=== PATIENT | female | born 1955 | race Caucasian/White ===

== ENCOUNTER 2017-11-04 19:12 | Emergency (ER) | payer OTHER ==
[~2017-11-04] VITALS: Ht 152.4 cm; Wt 63.5 kg
[~2017-11-04 19:12] MED LIST: FOLI-43 PO; GABA-531 PO; HYDR200T35 PO; HYDR25TA PO; IBUP100T53 PO; LOSA50TA20 PO; NAPR-681 PO; OMEP20CA10 PO; QUIN10TA28 PO; TRAM50TA3 PO
[2017-11-04] MEDS ORDERED: PREDNISONE 20MG TABLET PO ONE (21:15)
[2017-11-04] MEDS ORDERED: KETOROLAC 30MG/ML VIAL IV ONE (21:15)
[2017-11-04] MEDS ORDERED: PROCHLORPERAZINE MALEATE 10MG TABLET PO ONE (21:15)
[2017-11-04] MEDS ORDERED: SODIUM CHLORIDE 0.9% 1,000 ML IV ONE (21:15)
[2017-11-04] MEDS ORDERED: DIPHENHYDRAMINE 25MG CAPSULE PO ONE (21:15)
[2017-11-04 23:20] VITALS: BP 155/64
== END 2017-11-04 23:30 | disposition home or self-care (01) ==
LOC: ER 19:12
DX: R51 Headache (principal); M25.50 Pain in unspecified joint; I10 Essential (primary) hypertension; M19.90 Unspecified osteoarthritis, unspecified site; Z90.710 Acquired absence of both cervix and uterus
CPT/HCPCS: 96374; 99284; J1885; J7030; J7512; Z7610; Q0163; Q0164

== ENCOUNTER 2018-01-15 15:12 | Inpatient (IN) | payer OTHER ==
[~2018-01-15] VITALS: Ht 154.9 cm; Wt 67.1 kg
[2018-01-15] MEDS ORDERED: ASPIRIN 81MG TABLET PO ONE (16:30)
[2018-01-15 17:59] LABS: BASOPHILS % 0.2 % (0.0-2.0); EOSINOPHILS % 0.6 % (0.0-5.0); HEMATOCRIT. 36.1 % (36.0-48.0); HEMOGLOBIN. 12.1 g/dL (12.0-16.0); LYMPHOCYTES % 8.3 % (20.0-50.0); MEAN CORPUSCULAR HEMOGLOBIN 29.6 pg (28.0-32.0); MEAN CORPUSCULAR VOLUME 88.5 fL (81.0-99.0); MEAN PLATELET VOLUME 6.5 fl (7.4-10.4); MONOCYTES % 2.6 % (2.0-8.0); NEUTROPHILS % 88.3 % (40.0-76.0); PLATELET 517 x1000/uL (130-400); RED BLOOD CELL COUNT 4.08 mill/uL (4.2-5.4); RED CELL DISTRIBUTION WIDTH 15.8 % (11.6-14.6)
[2018-01-15 18:11] LABS: CHLORIDE 105 mEq/L (98-107)
[2018-01-15] MEDS ORDERED: HYDROCODONE/ACETAMINOPHEN 5/325MG TABLET PO PRN (18:45)
[2018-01-15] MEDS ORDERED: DEXTROSE 50% WATER 50ML SYRINGE IV PRN (18:45)
[2018-01-15] MEDS ORDERED: ACETAMINOPHEN 325MG TABLET PO PRN (18:45)
[2018-01-15] MEDS ORDERED: MORPHINE SULFATE 4 MG/ML CPJ (NOT FOR IM USE) IV ONE (18:45)
[2018-01-15] MEDS ORDERED: ONDANSETRON HCL 4MG/2ML INJ IV PRN (18:45)
[2018-01-15 19:16] LABS: LDL CHOLESTEROL 67 mg/dL (5-100)
[2018-01-15 19:18] LABS: CREATINE KINASE 23 IU/L (26-192); CREATINE KINASE MB FRACTION < 1.0 ng/mL (0.5-3.6); HDL CHOLESTEROL 53 mg/dL (40-59)
[2018-01-15] MEDS ORDERED: REGADENOSON 0.4 MG/5 ML IV NR (20:00)
[2018-01-15 20:07] LABS: CLARITY URINE CLEAR (CLEAR); COLOR URINE YELLOW (YELLOW); KETONES URINE NEGATIVE (NEGATIVE); LEUKOCYTE ESTERASE URINE NEGATIVE (NEGATIVE); NITRITE URINE NEGATIVE (NEGATIVE); OCCULT BLOOD URINE NEGATIVE (NEGATIVE); PH URINE 6.5 (4.5-8.0); PROTEIN URINE NEGATIVE (NEGATIVE); UROBILINOGEN URINE 0.2 E.U./dL (0.2-1.0)
[2018-01-15 20:23] LABS: *AMPHETAMINES SCREEN URINE NEGATIVE (NEGATIVE); *BARBITURATES SCREEN URINE NEGATIVE (NEGATIVE); *BENZODIAZEPINES SCREEN URINE NEGATIVE (NEGATIVE)
[2018-01-15 20:24] LABS: *COCAINE SCREEN URINE NEGATIVE (NEGATIVE); CANNABINOID URINE SCREEN PRESUMTIVE POSITIVE (NEGATIVE); METHADONE URINE SCREEN NEGATIVE (NEGATIVE); OPIATES URINE SCREEN NEGATIVE (NEGATIVE); PHENCYCLIDINE URINE SCREEN NEGATIVE (NEGATIVE)
[2018-01-15 22:15] VITALS: BP 171/82
[2018-01-15] MEDS ORDERED: CLONIDINE 0.1MG TABLET PO PRN (23:30)
[2018-01-15] MEDS ORDERED: ZOLPIDEM TARTRATE 5MG TABLET PO PRN (23:30)
[2018-01-15] MEDS ORDERED: CEFTRIAXONE 1 G PREMIX 50 ML IV SCH (23:45)
[2018-01-15] MEDS: MORPHINE SULFATE 4 MG/ML CPJ (NOT FOR IM USE) IV PRN (23:52)
[2018-01-16] VITALS (7 sets, daily range): BP systolic 126–155; BP diastolic 46–105
[2018-01-16] MEDS: MORPHINE SULFATE 4 MG/ML CPJ (NOT FOR IM USE) IV PRN ×4 (04:12→17:05)
[2018-01-16] MEDS: BLOOD SUGAR DIAGNOSTIC STRIP TEST SCH ×3 (06:37→17:37)
[2018-01-16 06:39] LABS: BASOPHILS % 0.2 % (0.0-2.0); EOSINOPHILS % 1.7 % (0.0-5.0); HEMATOCRIT. 34.1 % (36.0-48.0); HEMOGLOBIN. 11.5 g/dL (12.0-16.0); MEAN CORPUSCULAR HEMOGLOBIN 29.8 pg (28.0-32.0); MEAN CORPUSCULAR VOLUME 88.3 fL (81.0-99.0); MEAN PLATELET VOLUME 6.7 fl (7.4-10.4); MONOCYTES % 3.7 % (2.0-8.0); NEUTROPHILS % 80.4 % (40.0-76.0); PLATELET 504 x1000/uL (130-400); RED BLOOD CELL COUNT 3.86 mill/uL (4.2-5.4); RED CELL DISTRIBUTION WIDTH 15.5 % (11.6-14.6)
[2018-01-16 07:35] LABS: CHLORIDE 106 mEq/L (98-107)
[2018-01-16 07:41] LABS: CREATINE KINASE 22 IU/L (26-192); CREATINE KINASE MB FRACTION < 1.0 ng/mL (0.5-3.6); HDL CHOLESTEROL 49 mg/dL (40-59); LDL CHOLESTEROL 69 mg/dL (5-100)
[2018-01-16] MEDS ORDERED: ASPIRIN 81MG TABLET PO SCH (09:00)
[2018-01-16] MEDS: INSULIN LISPRO 100 UNITS/ML SUBCUT SCH ×2 (12:15→18:12)
== END 2018-01-16 21:15 | disposition home or self-care (01) | DRG 720 ==
LOC: ER 15:12 → 5WST 16:37 → EDBEDREQ 18:42 → ENRESERV 20:25
PROVIDERS: ADMIT Internal Medicine; ATTEND Internal Medicine
DX: A41.89 Other specified sepsis (principal); E44.0 Moderate protein-calorie malnutrition; E11.9 Type 2 diabetes mellitus without complications; F32.9 Major depressive disorder, single episode, unspecified; F41.9 Anxiety disorder, unspecified; I10 Essential (primary) hypertension; I83.90 Asymptomatic varicose veins of unspecified lower extremity; J30.9 Allergic rhinitis, unspecified; K21.9 Gastro-esophageal reflux disease without esophagitis; K59.00 Constipation, unspecified; M06.9 Rheumatoid arthritis, unspecified; M19.90 Unspecified osteoarthritis, unspecified site; N95.1 Menopausal and female climacteric states; R07.89 Other chest pain; G47.9 Sleep disorder, unspecified; H57.89 Other specified disorders of eye and adnexa; Z82.49 Family history of ischemic heart disease and other diseases of the circulatory system; Z90.710 Acquired absence of both cervix and uterus; Z88.8 Allergy status to other drugs, medicaments and biological substances; Z68.28 Body mass index [BMI] 28.0-28.9, adult; Z82.61 Family history of arthritis; Z90.49 Acquired absence of other specified parts of digestive tract; Z79.899 Other long term (current) drug therapy
CPT/HCPCS: 36415; 71045; 78452; 80048; 80061; 80305; 82550; 82553; 82962; 83036; 83880; 84145; 84443; 84484; 93005; 93017; 93306; 93970; 99285; A9500; J0696; J1815; J2270; J7050

== ENCOUNTER 2018-03-17 21:04 | Emergency (ER) | payer OTHER ==
[~2018-03-17] VITALS: Ht 152.4 cm; Wt 68.2 kg
[2018-03-18 00:40] VITALS: BP 142/78
== END 2018-03-18 01:35 | disposition home or self-care (01) ==
LOC: ER 21:04
DX: M54.40 Lumbago with sciatica, unspecified side (principal); M19.90 Unspecified osteoarthritis, unspecified site; I10 Essential (primary) hypertension; E11.9 Type 2 diabetes mellitus without complications; Z79.899 Other long term (current) drug therapy; Z88.8 Allergy status to other drugs, medicaments and biological substances
CPT/HCPCS: 99283

== ENCOUNTER 2018-10-05 19:21 | Emergency (ER) | payer MEDICARE, OTHER ==
[~2018-10-05] VITALS: Ht 154.9 cm; Wt 67.0 kg
[~2018-10-05 19:21] MED LIST changes: -LOSA50TA20 PO; +LOSA50TA41 PO; -OMEP20CA10 PO; +OMEP20CA5 PO
[2018-10-05 19:59] VITALS: BP 166/79
== END 2018-10-05 22:30 | disposition left against medical advice (07) ==
LOC: ER 19:21
DX: Z53.21 Procedure and treatment not carried out due to patient leaving prior to being seen by health care provider (principal)

== ENCOUNTER 2021-09-22 17:18 | Inpatient (IN) | payer MEDICARE, MEDICAID ==
[~2021-09-22] VITALS: Ht 154.9 cm; Wt 57.8 kg
[~2021-09-22 17:18] MED LIST changes: -GABA-531 PO; +GABA-532 PO; +OMEP20CA14 PO; -OMEP20CA5 PO
[2021-09-22] MEDS ORDERED: ACETAMINOPHEN 325MG TABLET PO STA (18:18)
[2021-09-22] MEDS ORDERED: NITROGLYCERIN 0.4MG TABLET SL SL PRN (18:30)
[2021-09-22] MEDS ORDERED: NAPROXEN 375MG TABLET PO ONE (18:45)
[2021-09-22 19:01] LABS: BASOPHILS % 0.6 % (0.0-2.0); EOSINOPHILS % 2.5 % (0.0-5.0); HEMOGLOBIN. 11.3 g/dL (12.0-16.0); LYMPHOCYTES % 28.4 % (20.0-50.0); MEAN CORPUSCULAR HEMOGLOBIN 29.8 pg (28.0-32.0); MEAN CORPUSCULAR VOLUME 89.4 fL (81.0-99.0); MEAN PLATELET VOLUME 5.9 fl (7.4-10.4); MONOCYTES % 5.5 % (2.0-8.0); PLATELET 440 x1000/uL (130-400); RED CELL DISTRIBUTION WIDTH 14.8 % (11.6-14.6)
[2021-09-22 19:12] LABS: CHLORIDE 104 mEq/L (98-107)
[2021-09-22] MEDS ORDERED: ASPIRIN 325MG EC TABLET PO ONE (20:30)
[2021-09-22] MEDS ORDERED: HYDROCODONE/ACETAMINOPHEN 5/325MG TABLET PO ONE (21:00)
[2021-09-22 22:30] VITALS: BP 147/75
[2021-09-22 23:02] VITALS: BP 147/75
[2021-09-22] MEDS ORDERED: DEXTROSE 50% WATER 50ML SYRINGE IV PRN (23:45)
[2021-09-23] VITALS: BP 125/68
[2021-09-23] MEDS ORDERED: DOXA1TAB2 PO (00:07)
[2021-09-23] MEDS ORDERED: IBUP-2029 PO (00:07)
[2021-09-23] MEDS ORDERED: GABA-290 PO (00:07)
[2021-09-23] MEDS ORDERED: DULO60CA64 PO (00:07)
[2021-09-23] MEDS ORDERED: METF-873 PO (00:07)
[2021-09-23] MEDS ORDERED: LISI20TA31 PO (00:07)
[2021-09-23] MEDS ORDERED: ATOR20TA PO (00:07)
[2021-09-23] MEDS ORDERED: IBUPROFEN 600MG TABLET PO PRN (00:30)
[2021-09-23] MEDS: ATORVASTATIN CALCIUM 20MG TABLET PO SCH ×2 (00:53→21:19)
[2021-09-23] MEDS: GABAPENTIN 300MG CAPSULE PO SCH ×2 (00:53→21:19)
[2021-09-23] MEDS: TRAMADOL 50MG TABLET PO SCH ×3 (00:55→17:39)
[2021-09-23 04:00] VITALS: BP 108/57
[2021-09-23 08:00] VITALS: BP 129/71
[2021-09-23] MEDS: INSULIN LISPRO 100 UNITS/ML SUBCUT SCH ×4 (08:04→21:00)
[2021-09-23] MEDS: BLOOD SUGAR DIAGNOSTIC STRIP TEST SCH ×4 (08:04→21:19)
[2021-09-23] MEDS: DULOXETINE HCL 60MG DR CAPSULE PO SCH ×2 (08:18→17:40)
[2021-09-23] MEDS: METFORMIN HCL 500MG TABLET PO SCH ×2 (08:18→17:39)
[2021-09-23] MEDS: LISINOPRIL 20MG TABLET PO SCH (08:18)
[2021-09-23] MEDS: DOXAZOSIN MESYLATE 2MG TABLET PO SCH (08:19)
[2021-09-23] MEDS: FOLIC ACID 1MG TABLET PO SCH (08:19)
[2021-09-23] MEDS: OMEPRAZOLE 20MG CAPSULE EXTENDED RELEASE PO SCH (08:19)
[2021-09-23] MEDS: ENOXAPARIN 40MG/0.4ML SYR SUBCUT SCH (08:20)
[2021-09-23 10:11] LABS: BASOPHILS % 0.5 % (0.0-2.0); EOSINOPHILS % 2.8 % (0.0-5.0); HEMOGLOBIN. 10.9 g/dL (12.0-16.0); LYMPHOCYTES % 26.3 % (20.0-50.0); MEAN CORPUSCULAR HEMOGLOBIN 29.8 pg (28.0-32.0); MEAN CORPUSCULAR VOLUME 89.8 fL (81.0-99.0); MEAN PLATELET VOLUME 6.2 fl (7.4-10.4); NEUTROPHILS % 65.4 % (40.0-76.0); PLATELET 408 x1000/uL (130-400); RED BLOOD CELL COUNT 3.67 mill/uL (4.2-5.4); RED CELL DISTRIBUTION WIDTH 15.1 % (11.6-14.6)
[2021-09-23 11:57] VITALS: BP 133/73
[2021-09-23 12:01] LABS: CHLORIDE 106 mEq/L (98-107)
[2021-09-23 12:08] LABS: HDL CHOLESTEROL 37 mg/dL (40-59); LDL CHOLESTEROL 67 mg/dL (5-100)
[2021-09-23 16:00] VITALS: BP 107/60
[2021-09-24] MEDS: TRAMADOL 50MG TABLET PO SCH (01:10)
[2021-09-24 04:00] VITALS: BP 134/68
[2021-09-24] MEDS ORDERED: HYDROCODONE/ACETAMINOPHEN 5/325MG TABLET PO PRN (06:15)
[2021-09-24] MEDS ORDERED: MORPHINE SULFATE 2 MG/ML CPJ (NOT FOR IM USE) IV NR (06:15)
[2021-09-24] MEDS ORDERED: NALOXONE HCL 0.4MG/ML VIAL IV PRN (06:30)
[2021-09-24] MEDS: BLOOD SUGAR DIAGNOSTIC STRIP TEST SCH (07:31)
[2021-09-24] MEDS: INSULIN LISPRO 100 UNITS/ML SUBCUT SCH (07:41)
[2021-09-24 08:00] VITALS: BP 135/67
[2021-09-24] MEDS: OMEPRAZOLE 20MG CAPSULE EXTENDED RELEASE PO SCH (08:54)
[2021-09-24] MEDS: METFORMIN HCL 500MG TABLET PO SCH (08:55)
[2021-09-24] MEDS: DULOXETINE HCL 60MG DR CAPSULE PO SCH (08:55)
[2021-09-24] MEDS: DOXAZOSIN MESYLATE 2MG TABLET PO SCH (08:55)
[2021-09-24] MEDS: LISINOPRIL 20MG TABLET PO SCH (08:55)
[2021-09-24] MEDS: FOLIC ACID 1MG TABLET PO SCH (08:55)
[2021-09-24] MEDS ORDERED: ASPIRIN 81MG TABLET PO SCH (09:00)
[2021-09-24] MEDS: ENOXAPARIN 40MG/0.4ML SYR SUBCUT SCH (09:01)
[2021-09-24 09:51] VITALS: BP 135/67
[2021-09-24] MEDS ORDERED: HYDR-4001 MT (11:15)
== END 2021-09-24 11:30 | disposition home or self-care (01) | DRG 206 ==
LOC: ER 17:18 → 7WST 20:28 → ENRESERV 21:06
PROVIDERS: ADMIT Internal Medicine; ATTEND Internal Medicine
DX: M94.0 Chondrocostal junction syndrome [Tietze] (principal); E87.1 Hypo-osmolality and hyponatremia; E44.1 Mild protein-calorie malnutrition; Z20.822 Contact with and (suspected) exposure to COVID-19; M06.9 Rheumatoid arthritis, unspecified; I10 Essential (primary) hypertension; E11.9 Type 2 diabetes mellitus without complications; I25.2 Old myocardial infarction; F32.A Depression, unspecified; Z68.24 Body mass index [BMI] 24.0-24.9, adult; I25.10 Atherosclerotic heart disease of native coronary artery without angina pectoris; Z95.1 Presence of aortocoronary bypass graft; Z91.09 Other allergy status, other than to drugs and biological substances
CPT/HCPCS: 36415; 71045; 80048; 80053; 80061; 82962; 83036; 83880; 84484; 85025; 85379; 87426; 93005; 93306; 99285; J1650; J2270

== ENCOUNTER 2021-11-12 13:39 | Inpatient (IN) | payer MEDICARE, OTHER ==
[~2021-11-12] VITALS: Ht 154.9 cm; Wt 61.4 kg
[~2021-11-12 13:39] MED LIST changes: +ATOR20TA PO; +DOXA1TAB2 PO; +DULO60CA64 PO; +GABA-290 PO; +HYDR-4001 MT; +IBUP-2029 PO; +LISI20TA31 PO; +METF-873 PO
[2021-11-12 20:10] LABS: BASOPHILS % 0.5 % (0.0-2.0); EOSINOPHILS % 3.6 % (0.0-5.0); HEMATOCRIT. 36.1 % (36.0-48.0); LYMPHOCYTES % 26.6 % (20.0-50.0); MEAN CORPUSCULAR HEMOGLOBIN 28.8 pg (28.0-32.0); MEAN CORPUSCULAR VOLUME 86.5 fL (81.0-99.0); MEAN PLATELET VOLUME 6.3 fl (7.4-10.4); MONOCYTES % 6.7 % (2.0-8.0); NEUTROPHILS % 62.6 % (40.0-76.0); PLATELET 515 x1000/uL (130-400); RED BLOOD CELL COUNT 4.18 mill/uL (4.2-5.4); RED CELL DISTRIBUTION WIDTH 14.3 % (11.6-14.6)
[2021-11-12 20:19] LABS: CHLORIDE 105 mEq/L (98-107)
[2021-11-12] MEDS ORDERED: METOCLOPRAMIDE HCL 10MG/2ML VIAL IV NR (20:30)
[2021-11-12] MEDS ORDERED: METHYLPREDNISOLONE SOD SUCC 125 MG/2 ML VIAL IV NR (20:30)
[2021-11-12 20:32] LABS: ETHANOL BLOOD < 10 mg/dL
[2021-11-12] MEDS ORDERED: MORPHINE SULFATE 4 MG/ML CPJ (NOT FOR IM USE) IV ONE (21:15)
[2021-11-12 21:45] LABS: *AMPHETAMINES SCREEN URINE NEGATIVE (NEGATIVE); *BARBITURATES SCREEN URINE NEGATIVE (NEGATIVE); *BENZODIAZEPINES SCREEN URINE NEGATIVE (NEGATIVE); *COCAINE SCREEN URINE NEGATIVE (NEGATIVE); CANNABINOID URINE SCREEN NEGATIVE (NEGATIVE); METHADONE URINE SCREEN NEGATIVE (NEGATIVE); OPIATES URINE SCREEN NEGATIVE (NEGATIVE); PHENCYCLIDINE URINE SCREEN NEGATIVE (NEGATIVE)
[2021-11-13] VITALS (7 sets, daily range): BP systolic 141–177; BP diastolic 58–80
[2021-11-13] MEDS ORDERED: HYDROCODONE/ACETAMINOPHEN 5/325MG TABLET PO PRN (06:30)
[2021-11-13] MEDS ORDERED: DEXTROSE 50% WATER 50ML SYRINGE IV PRN (06:30)
[2021-11-13] MEDS ORDERED: NALOXONE HCL 0.4MG/ML VIAL IV PRN (06:30)
[2021-11-13] MEDS: BLOOD SUGAR DIAGNOSTIC STRIP TEST SCH ×3 (07:20→16:38)
[2021-11-13] MEDS: INSULIN LISPRO 100 UNITS/ML SUBCUT SCH ×3 (08:30→17:01)
[2021-11-13 12:46] LABS: CHLORIDE 106 mEq/L (98-107)
[2021-11-13 12:50] LABS: HEMATOCRIT 32.2 % (36.0-48.0); HEMOGLOBIN 10.7 g/dL (12.0-16.0); MEAN CORPUSCULAR HEMOGLOBIN 28.7 pg (28.0-32.0); MEAN CORPUSCULAR VOLUME 86.6 fL (81.0-99.0); PLATELET 480 x1000/uL (130-400); RED BLOOD CELL COUNT 3.72 mill/uL (4.2-5.4); RED CELL DISTRIBUTION WIDTH 14.2 % (11.6-14.6)
[2021-11-13] MEDS ORDERED: TRAMADOL 50MG TABLET PO PRN (13:00)
[2021-11-13] MEDS ORDERED: IBUPROFEN 600MG TABLET PO PRN (13:00)
[2021-11-13] MEDS ORDERED: GABAPENTIN 300MG CAPSULE PO SCH ×2 (13:00→17:00)
[2021-11-13] MEDS ORDERED: CLONIDINE 0.1MG TABLET PO PRN (14:15)
[2021-11-13 14:39] LABS: CLARITY URINE CLEAR (CLEAR); COLOR URINE YELLOW (YELLOW); KETONES URINE 1+ (NEGATIVE); LEUKOCYTE ESTERASE URINE NEGATIVE (NEGATIVE); NITRITE URINE NEGATIVE (NEGATIVE); OCCULT BLOOD URINE NEGATIVE (NEGATIVE); PH URINE 7.5 (4.5-8.0); PROTEIN URINE NEGATIVE (NEGATIVE); SPECIFIC GRAVITY URINE 1.022 (1.005-1.030); UROBILINOGEN URINE 0.2 E.U./dL (0.2-1.0)
[2021-11-13] MEDS ORDERED: HYDROXYCHLOROQUINE SULFATE 200MG TABLET PO SCH (17:00)
[2021-11-14] MEDS ORDERED: OMEPRAZOLE 20MG CAPSULE EXTENDED RELEASE PO SCH (07:20)
[2021-11-14] MEDS ORDERED: HYDROCHLOROTHIAZIDE 25MG TABLET PO SCH (09:00)
[2021-11-14] MEDS ORDERED: LOSARTAN POTASSIUM 50 MG TABLET PO SCH (09:00)
== END 2021-11-13 19:07 | disposition home or self-care (01) | DRG 74 ==
LOC: ER 13:39 → ENRESERV 11-13 02:55 → 6WST 11-13 04:56
PROVIDERS: ADMIT Internal Medicine; ATTEND Internal Medicine
DX: G90.8 Other disorders of autonomic nervous system (principal); M06.9 Rheumatoid arthritis, unspecified; E11.9 Type 2 diabetes mellitus without complications; I10 Essential (primary) hypertension; H53.8 Other visual disturbances; H92.02 Otalgia, left ear; F32.A Depression, unspecified; Z91.09 Other allergy status, other than to drugs and biological substances
CPT/HCPCS: 36415; 71045; 80048; 80053; 80305; 80320; 81003; 82962; 83036; 83880; 84484; 85025; 85027; 85651; 86140; 93005; 99285; J1815; J2270; J2765; J2930; G0480

== ENCOUNTER 2021-11-29 14:28 | Emergency (ER) | payer MEDICARE, OTHER ==
[~2021-11-29] VITALS: Ht 152.4 cm; Wt 55.0 kg
[2021-11-29] MEDS ORDERED: HYDROCODONE/ACETAMINOPHEN 5/325MG TABLET PO ONE (16:15)
[2021-11-29 17:55] VITALS: BP 114/60
== END 2021-11-29 17:40 | disposition home or self-care (01) ==
LOC: ER 14:28
DX: M06.9 Rheumatoid arthritis, unspecified (principal); I10 Essential (primary) hypertension; E11.9 Type 2 diabetes mellitus without complications
CPT/HCPCS: 99283

== ENCOUNTER 2022-04-10 17:59 | Emergency (ER) | payer MEDICARE, OTHER ==
[~2022-04-10] VITALS: Ht 152.4 cm; Wt 59.0 kg
[2022-04-10 18:03] VITALS: BP 191/74
== END 2022-04-10 18:58 | disposition left against medical advice (07) ==
LOC: ER 17:59
DX: Z53.21 Procedure and treatment not carried out due to patient leaving prior to being seen by health care provider (principal)
CPT/HCPCS: 93005

== ENCOUNTER 2022-08-31 16:00 | Emergency (ER) | payer MEDICARE, MEDICAID ==
[~2022-08-31] VITALS: Ht 152.4 cm; Wt 72.7 kg
[2022-08-31] MEDS ORDERED: KETOROLAC 60MG/2ML VIAL IM ONE (18:30)
[2022-08-31 18:52] VITALS: BP 172/88
[2022-09-03] MEDS ORDERED: GABA-532 PO (13:23)
== END 2022-08-31 18:50 | disposition home or self-care (01) ==
LOC: ER 16:00
DX: I10 Essential (primary) hypertension (principal); E11.9 Type 2 diabetes mellitus without complications; M06.9 Rheumatoid arthritis, unspecified; Z68.31 Body mass index [BMI] 31.0-31.9, adult; Z79.899 Other long term (current) drug therapy; Z88.6 Allergy status to analgesic agent; Z88.8 Allergy status to other drugs, medicaments and biological substances
CPT/HCPCS: 96372; 99283; J1885

== ENCOUNTER 2023-02-07 13:54 | Emergency (ER) | payer MEDICARE, MEDICAID ==
[~2023-02-07] VITALS: Ht 152.4 cm; Wt 73.0 kg
[~2023-02-07 13:54] MED LIST changes: -GABA-290 PO; -HYDR200T35 PO; -IBUP100T53 PO; -NAPR-681 PO; -QUIN10TA28 PO
[2023-02-07 14:15] VITALS: O2SAT 96
[2023-02-07 14:45] LABS: BASOPHILS % 0.3 % (0.0-2.0); EOSINOPHILS % 0.1 % (0.0-5.0); HEMATOCRIT. 30.2 % (36.0-48.0); HEMOGLOBIN. 9.9 g/dL (12.0-16.0); LYMPHOCYTES % 9.8 % (20.0-50.0); MEAN CORPUSCULAR HEMOGLOBIN 27.5 pg (28.0-32.0); MEAN CORPUSCULAR HGB CONC 32.8 g/dL (31.0-37.0); MEAN CORPUSCULAR VOLUME 83.9 fL (81.0-99.0); MEAN PLATELET VOLUME 6.4 fl (7.4-10.4); MONOCYTES % 1.2 % (2.0-8.0); NEUTROPHILS % 88.6 % (40.0-76.0); PLATELET 467 x1000/uL (130-400); RED BLOOD CELL COUNT 3.61 mill/uL (4.2-5.4); RED CELL DISTRIBUTION WIDTH 18.1 % (11.6-14.6); WHITE BLOOD COUNT 6.4 x1000/uL (4.5-11.0)
[2023-02-07 14:56] LABS: CHLORIDE 108 mEq/L (98-107); INDEX HEMOLYSI 1 (1-3); INDEX ICTERIC 1 (1-4); INDEX LIPEMIC 1 (1-3); POTASSIUM 4.2 mEq/L (3.5-5.1); SODIUM 137 mEq/L (136-145)
[2023-02-07 15:04] LABS: ALANINE AMINOTRANSFERASE 20 IU/L (13-61); ALBUMIN 3.5 g/dL (3.4-5.0); ASPARTATE AMINOTRANSFERASE 17 IU/L (15-37); BILIRUBIN TOTAL 0.3 mg/dL (0.1-1.0); CALCIUM 9.3 mg/dL (8.5-10.1); CARBON DIOXIDE 25 mEq/L (21-32); CREATININE 0.6 mg/dL (0.6-1.3); GLUCOSE 134 mg/dL (70-105); PROTEIN TOTAL 7.9 g/dL (6.0-8.3); UREA NITROGEN BLOOD 12 mg/dL (7-21)
[2023-02-07 15:42] LABS: CLARITY URINE CLEAR (CLEAR); COLOR URINE YELLOW (YELLOW); GLUCOSE URINE NEGATIVE (NEGATIVE); KETONES URINE NEGATIVE (NEGATIVE); LEUKOCYTE ESTERASE URINE NEGATIVE (NEGATIVE); NITRITE URINE NEGATIVE (NEGATIVE); OCCULT BLOOD URINE NEGATIVE (NEGATIVE); PH URINE 6.5 (4.5-8.0); PROTEIN URINE NEGATIVE (NEGATIVE); SPECIFIC GRAVITY URINE 1.011 (1.005-1.030); UROBILINOGEN URINE 0.2 E.U./dL (0.2-1.0)
[2023-02-07 16:36] VITALS: BP 140/85; PULSE 99; RESP 18; TEMP 97.9
== END 2023-02-07 16:37 | disposition home or self-care (01) ==
LOC: ER 13:54
DX: I25.2 Old myocardial infarction (principal); I10 Essential (primary) hypertension; E11.65 Type 2 diabetes mellitus with hyperglycemia; Z88.6 Allergy status to analgesic agent; Z88.8 Allergy status to other drugs, medicaments and biological substances; Z79.899 Other long term (current) drug therapy
CPT/HCPCS: 36415; 80053; 81003; 82962; 85025; 99283

== ENCOUNTER 2023-03-07 17:01 | Emergency (ER) | payer MEDICARE, MEDICAID ==
[~2023-03-07] VITALS: Ht 154.9 cm; Wt 75.0 kg
[2023-03-07 17:13] VITALS: O2SAT 96
[2023-03-07 17:56] LABS: BASOPHILS % 0.3 % (0.0-2.0); EOSINOPHILS % 2.2 % (0.0-5.0); HEMATOCRIT. 33.7 % (36.0-48.0); HEMOGLOBIN. 11.1 g/dL (12.0-16.0); LYMPHOCYTES % 26.7 % (20.0-50.0); MEAN CORPUSCULAR HEMOGLOBIN 27.9 pg (28.0-32.0); MEAN CORPUSCULAR VOLUME 84.6 fL (81.0-99.0); MEAN PLATELET VOLUME 6.8 fl (7.4-10.4); MONOCYTES % 5.1 % (2.0-8.0); NEUTROPHILS % 65.7 % (40.0-76.0); PLATELET 491 x1000/uL (130-400); RED BLOOD CELL COUNT 3.98 mill/uL (4.2-5.4); RED CELL DISTRIBUTION WIDTH 16.6 % (11.6-14.6); WHITE BLOOD COUNT 8.2 x1000/uL (4.5-11.0)
[2023-03-07 18:11] LABS: ALANINE AMINOTRANSFERASE 51 IU/L (10-49); ASPARTATE AMINOTRANSFERASE 44 IU/L (<34); BILIRUBIN TOTAL 0.3 mg/dL (0.1-1.0); CALCIUM 9.1 mg/dL (8.7-10.4); CARBON DIOXIDE 22 mEq/L (21-32); CHLORIDE 102 mEq/L (98-107); CREATININE 0.7 mg/dL (0.6-1.0); GLUCOSE 141 mg/dL (70-105); POTASSIUM 3.6 mEq/L (3.5-5.1); PROTEIN TOTAL 7.4 g/dL (6.0-8.3); SODIUM 135 mEq/L (136-145); UREA NITROGEN BLOOD 14 mg/dL (9-23)
[2023-03-07 19:57] VITALS: BP 129/96; PULSE 94; RESP 17; TEMP 97.9
== END 2023-03-07 21:02 | disposition home or self-care (01) ==
LOC: ER 17:01
DX: R51.9 Headache, unspecified (principal); I11.0 Hypertensive heart disease with heart failure; I50.9 Heart failure, unspecified; E11.9 Type 2 diabetes mellitus without complications; Z98.890 Other specified postprocedural states; Z88.6 Allergy status to analgesic agent; Z88.8 Allergy status to other drugs, medicaments and biological substances
CPT/HCPCS: 36415; 80053; 85025; 99283

== ENCOUNTER 2023-05-20 12:31 | Emergency (ER) | payer MEDICARE, MEDICAID ==
[~2023-05-20] VITALS: Ht 152.4 cm; Wt 65.0 kg
[~2023-05-20 12:31] MED LIST changes: -HYDR-4001 MT; -LISI20TA31 PO
[2023-05-20 12:41] VITALS: BP 180/81; PULSE 78; RESP 15; TEMP 98
[2023-05-20 13:12] LABS: BASOPHILS % 0.5 % (0.0-2.0); EOSINOPHILS % 3.3 % (0.0-5.0); HEMATOCRIT. 29.4 % (36.0-48.0); HEMOGLOBIN. 9.6 g/dL (12.0-16.0); LYMPHOCYTES % 21.5 % (20.0-50.0); MEAN CORPUSCULAR HEMOGLOBIN 27.8 pg (28.0-32.0); MEAN CORPUSCULAR HGB CONC 32.8 g/dL (31.0-37.0); MEAN CORPUSCULAR VOLUME 84.8 fL (81.0-99.0); MEAN PLATELET VOLUME 6.7 fl (7.4-10.4); MONOCYTES % 5.1 % (2.0-8.0); NEUTROPHILS % 69.6 % (40.0-76.0); PLATELET 462 x1000/uL (130-400); RED BLOOD CELL COUNT 3.47 mill/uL (4.2-5.4); RED CELL DISTRIBUTION WIDTH 16.5 % (11.6-14.6); WHITE BLOOD COUNT 6.6 x1000/uL (4.5-11.0)
[2023-05-20 13:22] LABS: CARBON DIOXIDE 23 mEq/L (21-32); CHLORIDE 104 mEq/L (98-107); CREATININE 0.6 mg/dL (0.6-1.0); GLUCOSE 153 mg/dL (70-105); POTASSIUM 3.8 mEq/L (3.5-5.1); SODIUM 132 mEq/L (136-145); UREA NITROGEN BLOOD 17 mg/dL (9-23)
[2023-05-20 13:23] LABS: ALANINE AMINOTRANSFERASE 15 IU/L (10-49); ALBUMIN 3.9 g/dL (3.2-4.8); ASPARTATE AMINOTRANSFERASE 22 IU/L (<34); BILIRUBIN TOTAL 0.3 mg/dL (0.1-1.0); CALCIUM 8.7 mg/dL (8.7-10.4); PROTEIN TOTAL 7.3 g/dL (6.0-8.3); TROPONIN I HIGH SENSITIVITY 5 ng/L (3.0-34)
[2023-05-20 13:32] LABS: INR 1.1; PROTHROMBIN TIME 11.7 sec (9.6-11.0)
[2023-05-20] MEDS: HYDROXYZINE 25MG TABLET ONE (14:29)
[2023-05-20] MEDS: HYDROXYZINE 25MG TABLET PO NR (14:37)
[2023-05-20 16:22] LABS: TROPONIN I HIGH SENSITIVITY 6 ng/L (3.0-34)
== END 2023-05-20 16:58 | disposition home or self-care (01) ==
LOC: ER 12:31
DX: R07.89 Other chest pain (principal); I25.2 Old myocardial infarction; I10 Essential (primary) hypertension; E11.9 Type 2 diabetes mellitus without complications; Z88.8 Allergy status to other drugs, medicaments and biological substances; Z88.6 Allergy status to analgesic agent; Z79.899 Other long term (current) drug therapy
CPT/HCPCS: 36415; 71045; 80053; 84484; 85025; 93005; 99285

== ENCOUNTER 2023-06-23 15:12 | Emergency (ER) | payer MEDICARE, MEDICAID ==
[~2023-06-23] VITALS: Ht 152.4 cm; Wt 59.0 kg
[2023-06-23 15:28] VITALS: O2SAT 98
[2023-06-23 16:25] LABS: BASOPHILS % 0.8 % (0.0-2.0); EOSINOPHILS % 4.9 % (0.0-5.0); HEMATOCRIT. 32.2 % (36.0-48.0); HEMOGLOBIN. 10.7 g/dL (12.0-16.0); LYMPHOCYTES % 34.2 % (20.0-50.0); MEAN CORPUSCULAR HEMOGLOBIN 27.7 pg (28.0-32.0); MEAN CORPUSCULAR HGB CONC 33.4 g/dL (31.0-37.0); MEAN CORPUSCULAR VOLUME 82.9 fL (81.0-99.0); MEAN PLATELET VOLUME 6.6 fl (7.4-10.4); MONOCYTES % 6.6 % (2.0-8.0); NEUTROPHILS % 53.5 % (40.0-76.0); PLATELET 508 x1000/uL (130-400); RED BLOOD CELL COUNT 3.88 mill/uL (4.2-5.4); RED CELL DISTRIBUTION WIDTH 16.1 % (11.6-14.6); WHITE BLOOD COUNT 7.2 x1000/uL (4.5-11.0)
[2023-06-23 16:38] LABS: ALANINE AMINOTRANSFERASE 18 IU/L (10-49); ALBUMIN 4.2 g/dL (3.2-4.8); ASPARTATE AMINOTRANSFERASE 19 IU/L (<34); BILIRUBIN TOTAL 0.2 mg/dL (0.1-1.0); CALCIUM 8.6 mg/dL (8.7-10.4); CARBON DIOXIDE 23 mEq/L (21-32); CHLORIDE 102 mEq/L (98-107); CREATININE 0.6 mg/dL (0.6-1.0); GLUCOSE 127 mg/dL (70-105); POTASSIUM 3.8 mEq/L (3.5-5.1); PROTEIN TOTAL 8.1 g/dL (6.0-8.3); SODIUM 130 mEq/L (136-145); UREA NITROGEN BLOOD 16 mg/dL (9-23)
[2023-06-23 19:08] VITALS: BP 126/56; PULSE 68; RESP 18; TEMP 98
== END 2023-06-24 00:15 | disposition home or self-care (01) ==
LOC: ER 15:43
DX: I10 Essential (primary) hypertension (principal); E11.65 Type 2 diabetes mellitus with hyperglycemia; Z88.6 Allergy status to analgesic agent; Z88.8 Allergy status to other drugs, medicaments and biological substances; Z79.899 Other long term (current) drug therapy
CPT/HCPCS: 36415; 80053; 82962; 85025; 99283

== ENCOUNTER 2023-07-07 15:49 | Emergency (ER) | payer MEDICARE, MEDICAID ==
[~2023-07-07] VITALS: Ht 152.4 cm; Wt 66.0 kg
[2023-07-07 16:12] VITALS: TEMP 98.5; O2SAT 97
[2023-07-07 17:35] LABS: BASOPHILS % 0.6 % (0.0-2.0); EOSINOPHILS % 4.7 % (0.0-5.0); HEMATOCRIT. 29.8 % (36.0-48.0); HEMOGLOBIN. 10.1 g/dL (12.0-16.0); LYMPHOCYTES % 30.8 % (20.0-50.0); MEAN CORPUSCULAR HEMOGLOBIN 27.9 pg (28.0-32.0); MEAN CORPUSCULAR HGB CONC 33.8 g/dL (31.0-37.0); MEAN CORPUSCULAR VOLUME 82.5 fL (81.0-99.0); MEAN PLATELET VOLUME 6.6 fl (7.4-10.4); MONOCYTES % 6.2 % (2.0-8.0); NEUTROPHILS % 57.7 % (40.0-76.0); PLATELET 424 x1000/uL (130-400); RED BLOOD CELL COUNT 3.61 mill/uL (4.2-5.4); RED CELL DISTRIBUTION WIDTH 16.1 % (11.6-14.6); WHITE BLOOD COUNT 5.6 x1000/uL (4.5-11.0)
[2023-07-07 17:45] LABS: CLARITY URINE CLEAR (CLEAR); COLOR URINE YELLOW (YELLOW); GLUCOSE URINE NEGATIVE (NEGATIVE); KETONES URINE NEGATIVE (NEGATIVE); LEUKOCYTE ESTERASE URINE NEGATIVE (NEGATIVE); NITRITE URINE NEGATIVE (NEGATIVE); OCCULT BLOOD URINE NEGATIVE (NEGATIVE); PH URINE 6.5 (4.5-8.0); PROTEIN URINE NEGATIVE (NEGATIVE); SPECIFIC GRAVITY URINE 1.014 (1.005-1.030); UROBILINOGEN URINE 0.2 E.U./dL (0.2-1.0)
[2023-07-07 17:45] LABS: ALANINE AMINOTRANSFERASE 15 IU/L (10-49); ASPARTATE AMINOTRANSFERASE 20 IU/L (<34); BILIRUBIN TOTAL 0.3 mg/dL (0.1-1.0); CALCIUM 8.3 mg/dL (8.7-10.4); CARBON DIOXIDE 22 mEq/L (21-32); CHLORIDE 100 mEq/L (98-107); CREATININE 0.6 mg/dL (0.6-1.0); GLUCOSE 115 mg/dL (70-105); POTASSIUM 3.8 mEq/L (3.5-5.1); PROTEIN TOTAL 6.9 g/dL (6.0-8.3); SODIUM 130 mEq/L (136-145); TROPONIN I HIGH SENSITIVITY 5 ng/L (3.0-34); UREA NITROGEN BLOOD 13 mg/dL (9-23)
[2023-07-07] MEDS ORDERED: IBUPROFEN 400MG TABLET PO ONE (17:45)
[2023-07-07] MEDS ORDERED: IBUP-2028 MT (18:19)
[2023-07-07] MEDS: IBUPROFEN 400MG TABLET PO ONE (19:22)
[2023-07-07 19:24] VITALS: BP 195/98; PULSE 90; RESP 18
[2023-07-07] MEDS ORDERED: HYDROCHLOROTHIAZIDE 25MG TABLET PO ONE (19:30)
[2023-07-09] MEDS ORDERED: METF-414 MT (18:19)
[2023-07-09] MEDS ORDERED: HYDR-4350 MT (18:19)
[2023-07-09] MEDS ORDERED: AMLO5TAB4 PO (18:22)
[2023-07-09] MEDS ORDERED: LISI10TA26 PO (18:22)
[2023-07-10] MEDS ORDERED: LISI40TA13 MT (17:16)
== END 2023-07-07 21:48 | disposition home or self-care (01) ==
LOC: ER 15:49
DX: R51.9 Headache, unspecified (principal); I10 Essential (primary) hypertension; R42 Dizziness and giddiness; F41.9 Anxiety disorder, unspecified; E11.9 Type 2 diabetes mellitus without complications; I25.2 Old myocardial infarction; Z79.899 Other long term (current) drug therapy
CPT/HCPCS: 36415; 71045; 80053; 81003; 84484; 85025; 93005; 99285

== ENCOUNTER 2023-09-05 14:23 | Emergency (ER) | payer MEDICARE, MEDICAID ==
[~2023-09-05] VITALS: Ht 160 cm; Wt 57.0 kg
[~2023-09-05 14:23] MED LIST changes: +AMLO5TAB4 PO; +GABA-532 MT; +HYDR-4350 MT; -HYDR25TA PO; +IBUP-2028 MT; +LISI40TA13 MT; -LOSA50TA41 PO; +METF-414 MT
[2023-09-05 14:33] VITALS: O2SAT 99
[2023-09-05 15:46] LABS: BASOPHILS % 0.7 % (0.0-2.0); EOSINOPHILS % 5.3 % (0.0-5.0); HEMATOCRIT. 28.9 % (36.0-48.0); HEMOGLOBIN. 9.6 g/dL (12.0-16.0); LYMPHOCYTES % 28.8 % (20.0-50.0); MEAN CORPUSCULAR HEMOGLOBIN 27.2 pg (28.0-32.0); MEAN CORPUSCULAR HGB CONC 33.3 g/dL (31.0-37.0); MEAN CORPUSCULAR VOLUME 81.5 fL (81.0-99.0); MEAN PLATELET VOLUME 6.7 fl (7.4-10.4); MONOCYTES % 7.5 % (2.0-8.0); NEUTROPHILS % 57.7 % (40.0-76.0); PLATELET 504 x1000/uL (130-400); RED BLOOD CELL COUNT 3.55 mill/uL (4.2-5.4); RED CELL DISTRIBUTION WIDTH 16.5 % (11.6-14.6); WHITE BLOOD COUNT 5.8 x1000/uL (4.5-11.0)
[2023-09-05 16:06] LABS: CHLORIDE 100 mEq/L (98-107); POTASSIUM 3.7 mEq/L (3.5-5.1); SODIUM 131 mEq/L (136-145)
[2023-09-05 16:07] LABS: CALCIUM 9.4 mg/dL (8.7-10.4); CARBON DIOXIDE 24 mEq/L (21-32)
[2023-09-05 16:12] LABS: CREATININE 0.7 mg/dL (0.6-1.0); GLUCOSE 121 mg/dL (70-105); UREA NITROGEN BLOOD 14 mg/dL (9-23)
[2023-09-05] MEDS: TRAMADOL 50MG TABLET PO ONE (17:59)
[2023-09-05 19:03] LABS: TROPONIN I HIGH SENSITIVITY < 4 ng/L (3.0-34)
[2023-09-05 20:41] VITALS: BP 177/83; PULSE 78; RESP 20; TEMP 98.3
== END 2023-09-05 21:15 | disposition home or self-care (01) ==
LOC: ER 14:49
DX: I25.2 Old myocardial infarction (principal); I10 Essential (primary) hypertension; E11.9 Type 2 diabetes mellitus without complications; Z88.6 Allergy status to analgesic agent; Z88.2 Allergy status to sulfonamides; Z79.899 Other long term (current) drug therapy; Z04.89 Encounter for examination and observation for other specified reasons
CPT/HCPCS: 36415; 80048; 84484; 85025; 93005; 99284

== ENCOUNTER 2023-11-04 09:53 | Emergency (ER) | payer MEDICARE, MEDICAID ==
[~2023-11-04] VITALS: Ht 144.8 cm; Wt 56.7 kg
[2023-11-04 09:59] VITALS: O2SAT 99
[2023-11-04 10:21] LABS: BASOPHILS % 0.4 % (0.0-2.0); EOSINOPHILS % 3.9 % (0.0-5.0); HEMATOCRIT. 30.8 % (36.0-48.0); HEMOGLOBIN. 10.1 g/dL (12.0-16.0); LYMPHOCYTES % 26.2 % (20.0-50.0); MEAN CORPUSCULAR HEMOGLOBIN 27.4 pg (28.0-32.0); MEAN CORPUSCULAR HGB CONC 32.7 g/dL (31.0-37.0); MEAN CORPUSCULAR VOLUME 83.6 fL (81.0-99.0); MEAN PLATELET VOLUME 6.4 fl (7.4-10.4); NEUTROPHILS % 62.5 % (40.0-76.0); PLATELET 518 x1000/uL (130-400); RED BLOOD CELL COUNT 3.69 mill/uL (4.2-5.4); RED CELL DISTRIBUTION WIDTH 16.7 % (11.6-14.6); WHITE BLOOD COUNT 5.4 x1000/uL (4.5-11.0)
[2023-11-04 10:28] LABS: CHLORIDE 102 mEq/L (98-107); POTASSIUM 3.7 mEq/L (3.5-5.1); SODIUM 132 mEq/L (136-145)
[2023-11-04 10:29] LABS: CARBON DIOXIDE 22 mEq/L (21-32)
[2023-11-04 10:34] LABS: CREATININE 0.7 mg/dL (0.6-1.0); GLUCOSE 97 mg/dL (70-105); UREA NITROGEN BLOOD 16 mg/dL (9-23)
[2023-11-04 10:41] LABS: TROPONIN I HIGH SENSITIVITY < 4 ng/L (3.0-34)
[2023-11-04 11:04] VITALS: BP 142/88; PULSE 78; RESP 17; TEMP 98.2
== END 2023-11-04 11:12 | disposition home or self-care (01) ==
LOC: ER 09:53
DX: I10 Essential (primary) hypertension (principal); E11.9 Type 2 diabetes mellitus without complications; F41.9 Anxiety disorder, unspecified; Z88.6 Allergy status to analgesic agent; Z88.2 Allergy status to sulfonamides; Z79.899 Other long term (current) drug therapy; Z98.890 Other specified postprocedural states
CPT/HCPCS: 36415; 71045; 80048; 84484; 85025; 93005; 99285

== ENCOUNTER 2024-02-18 15:17 | Emergency (ER) | payer MEDICAID, MEDICARE ==
[~2024-02-18] VITALS: Ht 152.4 cm; Wt 72.0 kg
[2024-02-18 15:19] VITALS: PULSE 84; O2SAT 100
[2024-02-18 15:25] VITALS: BP 149/80; RESP 16; TEMP 98.3; O2SAT 98
[2024-02-18 16:05] LABS: BASOPHILS % 0.5 % (0.0-2.0); EOSINOPHILS % 4.9 % (0.0-5.0); HEMATOCRIT. 28.6 % (36.0-48.0); HEMOGLOBIN. 9.5 g/dL (12.0-16.0); LYMPHOCYTES % 33.7 % (20.0-50.0); MEAN CORPUSCULAR HEMOGLOBIN 28.6 pg (28.0-32.0); MEAN CORPUSCULAR HGB CONC 33.1 g/dL (31.0-37.0); MEAN CORPUSCULAR VOLUME 86.3 fL (81.0-99.0); MEAN PLATELET VOLUME 6.7 fl (7.4-10.4); MONOCYTES % 6.8 % (2.0-8.0); NEUTROPHILS % 54.1 % (40.0-76.0); PLATELET 441 x1000/uL (130-400); RED BLOOD CELL COUNT 3.31 mill/uL (4.2-5.4); RED CELL DISTRIBUTION WIDTH 17.2 % (11.6-14.6); WHITE BLOOD COUNT 6.5 x1000/uL (4.5-11.0)
[2024-02-18 16:08] LABS: CLARITY URINE CLEAR (CLEAR); COLOR URINE YELLOW (YELLOW); GLUCOSE URINE NEGATIVE (NEGATIVE); KETONES URINE NEGATIVE (NEGATIVE); LEUKOCYTE ESTERASE URINE NEGATIVE (NEGATIVE); NITRITE URINE NEGATIVE (NEGATIVE); OCCULT BLOOD URINE NEGATIVE (NEGATIVE); PROTEIN URINE NEGATIVE (NEGATIVE); SPECIFIC GRAVITY URINE 1.003 (1.005-1.030); UROBILINOGEN URINE 0.2 E.U./dL (0.2-1.0)
[2024-02-18 16:09] LABS: CHLORIDE 107 mEq/L (98-107); POTASSIUM 4.3 mEq/L (3.5-5.1); SODIUM 138 mEq/L (136-145)
[2024-02-18 16:10] LABS: CARBON DIOXIDE 25 mEq/L (21-32)
[2024-02-18 16:15] LABS: CREATININE 0.6 mg/dL (0.6-1.0); GLUCOSE 164 mg/dL (70-105)
[2024-02-18 16:16] LABS: UREA NITROGEN BLOOD 14 mg/dL (9-23)
[2024-02-18 16:17] LABS: ALANINE AMINOTRANSFERASE 21 IU/L (10-49); ALBUMIN 3.8 g/dL (3.2-4.8); ASPARTATE AMINOTRANSFERASE 28 IU/L (<34); TROPONIN I HIGH SENSITIVITY 5 ng/L (3.0-34)
[2024-02-18 16:18] LABS: BILIRUBIN DIRECT < 0.1 mg/dL (<=3.0); BILIRUBIN TOTAL 0.3 mg/dL (0.1-1.0); PROTEIN TOTAL 7.2 g/dL (6.0-8.3)
[2024-02-18 17:15] LABS: TROPONIN I HIGH SENSITIVITY 5 ng/L (3.0-34)
== END 2024-02-18 19:45 | disposition home or self-care (01) ==
LOC: ER 15:17
DX: R03.0 Elevated blood-pressure reading, without diagnosis of hypertension (principal); E11.9 Type 2 diabetes mellitus without complications; E78.5 Hyperlipidemia, unspecified; Z79.84 Long term (current) use of oral hypoglycemic drugs; Z79.899 Other long term (current) drug therapy
CPT/HCPCS: 36415; 71045; 80048; 80076; 81003; 84484; 85025; 93005; 99285

== ENCOUNTER 2024-04-27 16:22 | Emergency (ER) | payer MEDICARE, OTHER ==
[~2024-04-27] VITALS: Ht 134.6 cm; Wt 58.9 kg
[~2024-04-27 16:22] MED LIST changes: -AMLO5TAB4 PO; +AMLO5TAB5 PO; +GABA-1180 MT; +GABA-1180 PO; -GABA-532 MT; -GABA-532 PO; +METF-1149 PO; -METF-873 PO
[2024-04-27 16:23] VITALS: O2SAT 98
[2024-04-27 18:37] LABS: BASOPHILS % 0.3 % (0.0-2.0); HEMATOCRIT. 32.8 % (36.0-48.0); HEMOGLOBIN. 10.9 g/dL (12.0-16.0); LYMPHOCYTES % 15.6 % (20.0-50.0); MEAN CORPUSCULAR HEMOGLOBIN 29.9 pg (28.0-32.0); MEAN CORPUSCULAR HGB CONC 33.2 g/dL (31.0-37.0); MEAN CORPUSCULAR VOLUME 90.2 fL (81.0-99.0); MEAN PLATELET VOLUME 6.3 fl (7.4-10.4); MONOCYTES % 1.2 % (2.0-8.0); NEUTROPHILS % 82.9 % (40.0-76.0); PLATELET 427 x1000/uL (130-400); RED BLOOD CELL COUNT 3.63 mill/uL (4.2-5.4); RED CELL DISTRIBUTION WIDTH 15.2 % (11.6-14.6); WHITE BLOOD COUNT 4.3 x1000/uL (4.5-11.0)
[2024-04-27] MEDS: AMLODIPINE 10MG TABLET PO ONE (18:38)
[2024-04-27] MEDS: LISINOPRIL 40MG TABLET PO ONE (18:39)
[2024-04-27 18:53] LABS: CHLORIDE 107 mEq/L (98-107); POTASSIUM 4.3 mEq/L (3.5-5.1); SODIUM 138 mEq/L (136-145)
[2024-04-27 18:54] LABS: CALCIUM 9.4 mg/dL (8.7-10.4); CARBON DIOXIDE 25 mEq/L (21-32)
[2024-04-27 18:59] LABS: CREATININE 0.8 mg/dL (0.6-1.0); GLUCOSE 276 mg/dL (70-105); UREA NITROGEN BLOOD 21 mg/dL (9-23)
[2024-04-27 20:06] VITALS: BP 172/79; PULSE 87; RESP 19; TEMP 37.16964; O2SAT 97
== END 2024-04-27 20:26 | disposition home or self-care (01) ==
LOC: ER 16:22
DX: I10 Essential (primary) hypertension (principal); I67.82 Cerebral ischemia; E11.9 Type 2 diabetes mellitus without complications; I25.2 Old myocardial infarction; M19.90 Unspecified osteoarthritis, unspecified site; Z79.899 Other long term (current) drug therapy; Z79.84 Long term (current) use of oral hypoglycemic drugs; Z98.890 Other specified postprocedural states
CPT/HCPCS: 36415; 80048; 85025; 99284

== ENCOUNTER 2024-08-11 17:31 | Emergency (ER) | payer OTHER ==
[~2024-08-11] VITALS: Ht 160 cm; Wt 60.0 kg
[~2024-08-11 17:31] MED LIST changes: +ASPI-1497 MT; +ATOR20TA MT
[2024-08-11 17:38] VITALS: TEMP 36.7; O2SAT 96
[2024-08-11 18:06] LABS: BASOPHILS % 0.6 % (0.0-2.0); EOSINOPHILS % 3.3 % (0.0-5.0); HEMATOCRIT. 33.9 % (36.0-48.0); HEMOGLOBIN. 11.4 g/dL (12.0-16.0); MEAN CORPUSCULAR HEMOGLOBIN 29.9 pg (28.0-32.0); MEAN CORPUSCULAR HGB CONC 33.7 g/dL (31.0-37.0); MEAN CORPUSCULAR VOLUME 88.6 fL (81.0-99.0); MEAN PLATELET VOLUME 6.3 fl (7.4-10.4); MONOCYTES % 5.6 % (2.0-8.0); NEUTROPHILS % 51.5 % (40.0-76.0); PLATELET 448 x1000/uL (130-400); RED BLOOD CELL COUNT 3.83 mill/uL (4.2-5.4); RED CELL DISTRIBUTION WIDTH 14.5 % (11.6-14.6); WHITE BLOOD COUNT 6.7 x1000/uL (4.5-11.0)
[2024-08-11 18:12] LABS: CHLORIDE 102 mEq/L (98-107); POTASSIUM 3.6 mEq/L (3.5-5.1); SODIUM 134 mEq/L (136-145)
[2024-08-11 18:13] LABS: CARBON DIOXIDE 25 mEq/L (21-32)
[2024-08-11 18:14] LABS: CALCIUM 9.8 mg/dL (8.7-10.4)
[2024-08-11 18:18] LABS: CREATININE 0.9 mg/dL (0.6-1.0); GLUCOSE 153 mg/dL (70-105); UREA NITROGEN BLOOD 21 mg/dL (9-23)
[2024-08-11 18:20] LABS: TROPONIN I HIGH SENSITIVITY < 4 ng/L (3.0-34)
[2024-08-11 20:15] VITALS: BP 124/69; PULSE 92; RESP 14; O2SAT 99
== END 2024-08-11 20:22 | disposition home or self-care (01) ==
LOC: ER 17:31
DX: I10 Essential (primary) hypertension (principal); M19.90 Unspecified osteoarthritis, unspecified site; F41.9 Anxiety disorder, unspecified; E11.9 Type 2 diabetes mellitus without complications; E78.00 Pure hypercholesterolemia, unspecified; Z95.1 Presence of aortocoronary bypass graft; Z79.899 Other long term (current) drug therapy; Z79.82 Long term (current) use of aspirin; Z79.84 Long term (current) use of oral hypoglycemic drugs
CPT/HCPCS: 36415; 71045; 80048; 84484; 85025; 93005; 99285

== ENCOUNTER 2024-09-18 17:42 | Emergency (ER) | payer OTHER ==
[~2024-09-18] VITALS: Ht 154.9 cm; Wt 59.0 kg
[~2024-09-18 17:42] MED LIST changes: +ALBU18HF2 PO; -AMLO5TAB5 PO; -ATOR20TA MT; +CLON0.1T PO; -DOXA1TAB2 PO; -DULO60CA64 PO; -FOLI-43 PO; -GABA-1180 MT; -GABA-1180 PO; +GABA-534 PO; -HYDR-4350 MT; +HYDR25TA PO; -IBUP-2028 MT; -IBUP-2029 PO; +LISI20TA31 PO; -LISI40TA13 MT; -METF-1149 PO; -METF-414 MT; +METF-414 PO; -OMEP20CA14 PO; -TRAM50TA3 PO
[2024-09-18 17:48] VITALS: O2SAT 99
[2024-09-18 17:51] VITALS: BP 125/63; PULSE 97; RESP 16; TEMP 36.7; O2SAT 96
[2024-09-18 18:10] LABS: BASOPHILS % 0.7 % (0.0-2.0); EOSINOPHILS % 5.3 % (0.0-5.0); HEMATOCRIT. 29.4 % (36.0-48.0); LYMPHOCYTES % 27.5 % (20.0-50.0); MEAN CORPUSCULAR HEMOGLOBIN 30.6 pg (28.0-32.0); MEAN CORPUSCULAR HGB CONC 33.8 g/dL (31.0-37.0); MEAN CORPUSCULAR VOLUME 90.6 fL (81.0-99.0); MEAN PLATELET VOLUME 6.4 fl (7.4-10.4); MONOCYTES % 6.8 % (2.0-8.0); NEUTROPHILS % 59.7 % (40.0-76.0); PLATELET 372 x1000/uL (130-400); RED BLOOD CELL COUNT 3.25 mill/uL (4.2-5.4); RED CELL DISTRIBUTION WIDTH 14.6 % (11.6-14.6); WHITE BLOOD COUNT 5.7 x1000/uL (4.5-11.0)
[2024-09-18 18:18] LABS: CHLORIDE 105 mEq/L (98-107); POTASSIUM 4.1 mEq/L (3.5-5.1); SODIUM 139 mEq/L (136-145)
[2024-09-18 18:19] LABS: CALCIUM 9.6 mg/dL (8.7-10.4); CARBON DIOXIDE 25 mEq/L (21-32)
[2024-09-18 18:24] LABS: CREATININE 0.9 mg/dL (0.6-1.0); GLUCOSE 172 mg/dL (70-105); UREA NITROGEN BLOOD 20 mg/dL (9-23)
[2024-09-18 18:26] LABS: TROPONIN I HIGH SENSITIVITY < 4 ng/L (3.0-34)
[2024-09-18 20:18] LABS: CLARITY URINE CLEAR (CLEAR); COLOR URINE YELLOW (YELLOW); GLUCOSE URINE NEGATIVE (NEGATIVE); KETONES URINE TRACE (NEGATIVE); LEUKOCYTE ESTERASE URINE TRACE (NEGATIVE); NITRITE URINE NEGATIVE (NEGATIVE); OCCULT BLOOD URINE NEGATIVE (NEGATIVE); PH URINE 5.5 (4.5-8.0); PROTEIN URINE NEGATIVE (NEGATIVE); SPECIFIC GRAVITY URINE 1.027 (1.005-1.030)
[2024-09-18 20:29] LABS: BACTERIA URINE NONE SEEN; RBC URINE 0-2 /hpf (0-2); SQUAMOUS EPITHELIAL CELL URINE 2+ /lpf (RARE/1+)
[2024-09-18 20:44] LABS: TROPONIN I HIGH SENSITIVITY < 4 ng/L (3.0-34)
[2024-09-18] MEDS ORDERED: OXYM30SP26 BOTHNSTRLS (21:12)
[2024-09-18] MEDS ORDERED: FLUT9.9S BOTHNSTRLS (21:12)
== END 2024-09-18 21:32 | disposition home or self-care (01) ==
LOC: ER 17:42
DX: R09.81 Nasal congestion (principal); J45.909 Unspecified asthma, uncomplicated; E11.9 Type 2 diabetes mellitus without complications; I10 Essential (primary) hypertension; M19.90 Unspecified osteoarthritis, unspecified site; Z79.82 Long term (current) use of aspirin; Z79.84 Long term (current) use of oral hypoglycemic drugs; Z79.899 Other long term (current) drug therapy; Z98.890 Other specified postprocedural states
CPT/HCPCS: 36415; 71045; 80048; 81003; 84484; 85025; 93005; 99285

== ENCOUNTER 2024-11-13 19:26 | Inpatient (IN) | payer MEDICARE, MEDICAID ==
[~2024-11-13] VITALS: Ht 154.9 cm; Wt 61.8 kg
[~2024-11-13 19:26] MED LIST changes: +FLUT9.9S BOTHNSTRLS; +OXYM30SP26 BOTHNSTRLS
[2024-11-13 19:30] VITALS: O2SAT 100
[2024-11-13 20:00] LABS: BASOPHILS % 0.8 % (0.0-2.0); EOSINOPHILS % 8.3 % (0.0-5.0); HEMATOCRIT. 29.0 % (36.0-48.0); HEMOGLOBIN. 9.5 g/dL (12.0-16.0); LYMPHOCYTES % 38.8 % (20.0-50.0); MEAN PLATELET VOLUME 6.7 fl (7.4-10.4); MONOCYTES % 6.9 % (2.0-8.0); NEUTROPHILS % 45.2 % (40.0-76.0); PLATELET 426 x1000/uL (130-400); RED BLOOD CELL COUNT 3.28 mill/uL (4.2-5.4); RED CELL DISTRIBUTION WIDTH 14.0 % (11.6-14.6)
[2024-11-13 20:13] LABS: CREATININE 1.1 mg/dL (0.6-1.0)
[2024-11-13 20:14] LABS: UREA NITROGEN BLOOD 22.0 mg/dL (9-23)
[2024-11-13 20:27] LABS: CLARITY URINE CLEAR (CLEAR); COLOR URINE YELLOW (YELLOW); GLUCOSE URINE NEGATIVE (NEGATIVE); KETONES URINE NEGATIVE (NEGATIVE); LEUKOCYTE ESTERASE URINE NEGATIVE (NEGATIVE); NITRITE URINE NEGATIVE (NEGATIVE); OCCULT BLOOD URINE NEGATIVE (NEGATIVE); PH URINE 7.5 (4.5-8.0); PROTEIN URINE NEGATIVE (NEGATIVE); SPECIFIC GRAVITY URINE 1.009 (1.005-1.030); UROBILINOGEN URINE 0.2 E.U./dL (0.2-1.0)
[2024-11-13 22:40] LABS: TROPONIN I HIGH SENSITIVITY < 4 ng/L (3.0-34)
[2024-11-13 22:41] LABS: ASPARTATE AMINOTRANSFERASE 29 IU/L (<34); BILIRUBIN DIRECT < 0.1 mg/dL (<=3.0)
[2024-11-13 22:42] LABS: BILIRUBIN TOTAL 0.2 mg/dL (0.1-1.0); PROTEIN TOTAL 7.5 g/dL (6.0-8.3)
[2024-11-13 23:11] LABS: TROPONIN I HIGH SENSITIVITY 5 ng/L (3.0-34)
[2024-11-14] VITALS (8 sets, daily range): BP systolic 112–162; BP diastolic 52–86; PULSE 54–83; RESP 12–17; TEMP 36.6–37.252; O2SAT 97–99
[2024-11-14] MEDS ORDERED: IPRATROPIUM/ALBUTEROL 0.5-3(2.5)MG/3ML NEB HHN PRN (00:45)
[2024-11-14] MEDS ORDERED: DEXTROSE 50% WATER 50ML SYRINGE IV PRN (00:45)
[2024-11-14] MEDS: DOXAZOSIN MESYLATE 4MG TABLET PO SCH ×2 (00:45→21:41)
[2024-11-14] MEDS ORDERED: DOCUSATE SODIUM 100MG CAPSULE PO PRN (00:45)
[2024-11-14] MEDS ORDERED: CLONIDINE 0.1MG TABLET PO PRN (00:45)
[2024-11-14] MEDS ORDERED: ONDANSETRON HCL 4MG/2ML INJ IV PRN (00:45)
[2024-11-14 01:31] LABS: PHOSPHORUS 2.8 mg/dL (2.5-4.9)
[2024-11-14] MEDS: GABAPENTIN 400MG CAPSULE PO SCH (06:41)
[2024-11-14] MEDS: BLOOD SUGAR DIAGNOSTIC STRIP TEST SCH (06:47)
[2024-11-14] MEDS: INSULIN LISPRO 100 UNITS/ML SUBCUT SCH (07:20)
[2024-11-14 07:32] LABS: CREATINE KINASE MB FRACTION 1.3 ng/mL (0.5-3.6); TROPONIN I HIGH SENSITIVITY 4.0 ng/L (3.0-34)
[2024-11-14 08:39] LABS: HEPATITIS C AB NON REACTIVE (Neg) (Negative)
[2024-11-14] MEDS: ASPIRIN 81MG TABLET PO SCH (08:47)
[2024-11-14] MEDS: ENOXAPARIN 30MG/0.3ML SYR SUBCUT SCH (08:47)
[2024-11-14] MEDS: PANTOPRAZOLE SODIUM 40 MG/VIAL IV SCH (08:47)
[2024-11-14] MEDS: AMLODIPINE 5MG TABLET PO SCH (08:50)
[2024-11-14] MEDS: CLONIDINE 0.1MG TABLET PO SCH (08:50)
[2024-11-14] MEDS: CARVEDILOL 12.5MG TABLET PO SCH (08:51)
[2024-11-14] MEDS: HYDROCHLOROTHIAZIDE 25MG TABLET PO SCH (09:30)
[2024-11-14] MEDS: LISINOPRIL 20MG TABLET PO SCH (09:30)
[2024-11-14 15:05] LABS: *AMPHETAMINES SCREEN URINE NEGATIVE (NEGATIVE); *BARBITURATES SCREEN URINE NEGATIVE (NEGATIVE); *BENZODIAZEPINES SCREEN URINE NEGATIVE (NEGATIVE)
[2024-11-14 15:06] LABS: *COCAINE SCREEN URINE NEGATIVE (NEGATIVE); CANNABINOID URINE SCREEN NEGATIVE (NEGATIVE); ECSTASY MDMA SCREEN URINE NEGATIVE (NEGATIVE); METHADONE URINE SCREEN NEGATIVE (NEGATIVE); OPIATES URINE SCREEN NEGATIVE (NEGATIVE); PHENCYCLIDINE URINE SCREEN NEGATIVE (NEGATIVE)
[2024-11-14] MEDS: TRAMADOL 50MG TABLET PO PRN (17:49)
[2024-11-14 18:55] LABS: CREATINE KINASE MB FRACTION 1.2 ng/mL (0.5-3.6); TROPONIN I HIGH SENSITIVITY 4.0 ng/L (3.0-34)
[2024-11-14] MEDS: ATORVASTATIN CALCIUM 20MG TABLET PO SCH (21:41)
[2024-11-15] VITALS: BP 99/79; PULSE 66; RESP 12; TEMP 36.6; O2SAT 99
[2024-11-15 04:00] VITALS: BP 121/50; PULSE 58; RESP 13; TEMP 36.6; O2SAT 97
[2024-11-15 08:00] VITALS: BP 120/79; PULSE 54; RESP 13; TEMP 36.7; O2SAT 98
[2024-11-15 08:24] LABS: BASOPHILS % 0.5 % (0.0-2.0); EOSINOPHILS % 7.0 % (0.0-5.0); HEMATOCRIT. 29.7 % (36.0-48.0); HEMOGLOBIN. 9.8 g/dL (12.0-16.0); LYMPHOCYTES % 33.6 % (20.0-50.0); MEAN PLATELET VOLUME 6.9 fl (7.4-10.4); MONOCYTES % 6.5 % (2.0-8.0); NEUTROPHILS % 52.4 % (40.0-76.0); PLATELET 391 x1000/uL (130-400); RED BLOOD CELL COUNT 3.38 mill/uL (4.2-5.4); RED CELL DISTRIBUTION WIDTH 14.2 % (11.6-14.6)
[2024-11-15 08:46] LABS: CREATININE 0.7 mg/dL (0.6-1.0); TRIGLYCERIDE 99 mg/dL (0-150); UREA NITROGEN BLOOD 16 mg/dL (9-23)
[2024-11-15 08:47] LABS: LDL CHOLESTEROL 53 mg/dL (5-100)
[2024-11-15 08:48] LABS: T4 FREE 1.18 ng/dL (0.89-1.76)
[2024-11-15] MEDS: AMLODIPINE 10MG TABLET PO SCH (09:13)
[2024-11-15 12:00] VITALS: BP 118/90; PULSE 80; RESP 20; TEMP 36.7; O2SAT 96
[2024-11-15] MEDS ORDERED: LISI20TA31 PO (13:47)
[2024-11-15] MEDS ORDERED: COR12 PO (13:47)
[2024-11-15] MEDS ORDERED: AMLO10TA80 PO (13:47)
[2024-11-15] MEDS ORDERED: ATOR20TA PO (13:47)
[2024-11-15] MEDS ORDERED: ASPI-1160 PO (13:47)
[2024-11-15 16:45] VITALS: BP 115/53; PULSE 65; RESP 15; TEMP 98
== END 2024-11-15 18:11 | disposition home health service (06) | DRG 305 ==
LOC: ER 19:26 → 3WST 23:39 → EDBEDREQ 23:42 → EDBEDREQTM 23:42
PROVIDERS: ADMIT Hospitalist; ATTEND Hospitalist
DX: I16.1 Hypertensive emergency (principal); N17.9 Acute kidney failure, unspecified; E11.9 Type 2 diabetes mellitus without complications; D64.9 Anemia, unspecified; I10 Essential (primary) hypertension; J45.909 Unspecified asthma, uncomplicated; Z79.84 Long term (current) use of oral hypoglycemic drugs; Z79.899 Other long term (current) drug therapy; Z88.6 Allergy status to analgesic agent; Z95.1 Presence of aortocoronary bypass graft; Z88.8 Allergy status to other drugs, medicaments and biological substances
CPT/HCPCS: 36415; 71045; 80048; 80061; 80076; 80305; 81003; 82550; 82553; 82728; 82962; 83036; 83540; 83550; 83735; 83880; 84100; 84439; 84443; 84484; 85025; 86705; 87340; 93005; 99285; A4606; J1650; J2470

== ENCOUNTER 2025-01-13 08:19 | Emergency (ER) | payer OTHER ==
[~2025-01-13] VITALS: Ht 149.9 cm; Wt 60.0 kg
[~2025-01-13 08:19] MED LIST changes: +AMLO10TA80 PO; +ASPI-1160 PO; -ASPI-1497 MT; +CARV12.545 PO; -CLON0.1T PO; +COR12 PO; +FLUT16SP15; +IPRA3AMP9 NEB; +P20 MT
[2025-01-13 09:24] VITALS: PULSE 64; RESP 14; O2SAT 98
[2025-01-13] MEDS: IPRATROPIUM BROMIDE (0.02%) 0.5MG/2.5ML NEB HHN SCH (09:25)
[2025-01-13] MEDS: ALBUTEROL (0.083%) 2.5MG/3ML NEB HHN SCH (09:25)
[2025-01-13 09:39] LABS: BASOPHILS % 0.9 % (0.0-2.0); EOSINOPHILS % 6.8 % (0.0-5.0); HEMATOCRIT. 29.5 % (36.0-48.0); HEMOGLOBIN. 9.8 g/dL (12.0-16.0); LYMPHOCYTES % 33.1 % (20.0-50.0); MEAN PLATELET VOLUME 7.4 fl (7.4-10.4); MONOCYTES % 6.3 % (2.0-8.0); NEUTROPHILS % 52.9 % (40.0-76.0); PLATELET 399 x1000/uL (130-400); RED BLOOD CELL COUNT 3.35 mill/uL (4.2-5.4); RED CELL DISTRIBUTION WIDTH 16.0 % (11.6-14.6)
[2025-01-13 09:54] LABS: CREATININE 0.7 mg/dL (0.6-1.0); UREA NITROGEN BLOOD 16 mg/dL (9-23)
[2025-01-13] MEDS: PREDNISONE 20MG TABLET PO ONE (10:08)
[2025-01-13] MEDS: CLONIDINE 0.1MG TABLET PO ONE (10:08)
[2025-01-13] MEDS ORDERED: ALBU18HF2 IH (11:13)
[2025-01-13] MEDS ORDERED: ALBU05 NEB (11:13)
[2025-01-13] MEDS ORDERED: P50 MT (11:14)
[2025-01-13 11:28] VITALS: BP 160/57; PULSE 66; RESP 15; TEMP 36.7; O2SAT 99
[2025-01-15] MEDS ORDERED: FURO-151 MT (14:58)
[2025-01-15] MEDS ORDERED: POTA-205 MT (14:58)
== END 2025-01-13 11:32 | disposition home or self-care (01) ==
LOC: ER 08:39
DX: J45.901 Unspecified asthma with (acute) exacerbation (principal); I10 Essential (primary) hypertension; E11.9 Type 2 diabetes mellitus without complications; Z79.899 Other long term (current) drug therapy
CPT/HCPCS: 99284; 71045; 80048; 85025; 36415; 94640; J7512; 94070; 94664; A4606

== ENCOUNTER 2025-03-14 16:40 | Emergency (ER) | payer OTHER ==
[~2025-03-14] VITALS: Ht 152.4 cm; Wt 59.0 kg
[~2025-03-14 16:40] MED LIST changes: +ALBU05 NEB; +ALBU18HF2 IH; +FURO-151 MT; +P50 MT; +POTA-205 MT
[2025-03-14 16:48] VITALS: O2SAT 99
[2025-03-14 17:26] LABS: BASOPHILS % 0.7 % (0.0-2.0); EOSINOPHILS % 3.3 % (0.0-5.0); HEMATOCRIT. 31.9 % (36.0-48.0); HEMOGLOBIN. 10.6 g/dL (12.0-16.0); LYMPHOCYTES % 32.4 % (20.0-50.0); MEAN PLATELET VOLUME 6.6 fl (7.4-10.4); MONOCYTES % 6.6 % (2.0-8.0); NEUTROPHILS % 57.0 % (40.0-76.0); PLATELET 380 x1000/uL (130-400); RED BLOOD CELL COUNT 3.67 mill/uL (4.2-5.4); RED CELL DISTRIBUTION WIDTH 15.4 % (11.6-14.6)
[2025-03-14 17:40] LABS: CREATININE 0.7 mg/dL (0.6-1.0)
[2025-03-14 17:40] LABS: BG DEOXYHEMOGLOBIN 16.4 % (0.0-5.0)
[2025-03-14 17:41] LABS: PROTEIN TOTAL 7.3 g/dL (6.0-8.3); TROPONIN I HIGH SENSITIVITY < 4 ng/L (3.0-34); UREA NITROGEN BLOOD 17 mg/dL (9-23)
[2025-03-14 17:42] LABS: ASPARTATE AMINOTRANSFERASE 39 IU/L (<34)
[2025-03-14 17:43] LABS: BILIRUBIN DIRECT 0.1 mg/dL (<=3.0); BILIRUBIN TOTAL 0.4 mg/dL (0.1-1.0)
[2025-03-14 17:45] VITALS: BP 114/74; PULSE 71; RESP 18; TEMP 37.1; O2SAT 98
[2025-03-14] MEDS ORDERED: EMPA10TA MT (18:09)
[2025-03-14] MEDS: SODIUM CHLORIDE 0.9% 1,000 ML IV ONE (18:18)
[2025-03-14] MEDS: KETOROLAC 15MG/ML VIAL IV ONE (18:21)
[2025-03-14 19:03] LABS: CLARITY URINE CLEAR (CLEAR); COLOR URINE YELLOW (YELLOW); GLUCOSE URINE NEGATIVE (NEGATIVE); KETONES URINE NEGATIVE (NEGATIVE); LEUKOCYTE ESTERASE URINE NEGATIVE (NEGATIVE); NITRITE URINE NEGATIVE (NEGATIVE); OCCULT BLOOD URINE NEGATIVE (NEGATIVE); PH URINE 6.5 (4.5-8.0); PROTEIN URINE NEGATIVE (NEGATIVE); SPECIFIC GRAVITY URINE 1.013 (1.005-1.030); UROBILINOGEN URINE 0.2 E.U./dL (0.2-1.0)
== END 2025-03-14 19:25 | disposition home or self-care (01) ==
LOC: ER 16:40 → CANBEDREQ 18:30 → ER 19:25
DX: E11.40 Type 2 diabetes mellitus with diabetic neuropathy, unspecified (principal); E11.65 Type 2 diabetes mellitus with hyperglycemia; J44.9 Chronic obstructive pulmonary disease, unspecified; Z79.899 Other long term (current) drug therapy; I11.0 Hypertensive heart disease with heart failure
CPT/HCPCS: 99285; 96374; 71045; 80076; 80048; 81003; 82010; 82962; 83880; 83735; 85025; 84484; 36415; 82375; 82803; 93005; J1885; J7030